=== PATIENT | male | born 1970 | race Caucasian/White ===

== ENCOUNTER 2024-08-10 11:35 | Emergency (ER) | payer MEDICAID ==
[~2024-08-10] VITALS: Ht 180.3 cm; Wt 81.6 kg
[2024-08-10 12:11] VITALS: BP_SYST 107; PULSE 86; RESP 18; TEMP 98.3; O2SAT 98
[2024-08-10] MEDS ORDERED: HYDR-3927 PO (12:22)
[2024-08-10] MEDS ORDERED: DOCU-144 PO (12:22)
[2024-08-10 12:35] VITALS: BP_SYST 107; PULSE 86; RESP 18; TEMP 98.3; O2SAT 98
== END 2024-08-10 12:34 | disposition home or self-care (01) ==
LOC: SED 11:35
DX: K64.8 Other hemorrhoids (principal); Z79.899 Other long term (current) drug therapy
CPT/HCPCS: 99283